=== PATIENT | female | born 1960 | race American Indian/Alaskan Native ===

== ENCOUNTER 2023-07-03 10:23 | Emergency (ER) | payer MEDICAID ==
[~2023-07-03] VITALS: Ht 165.1 cm; Wt 60.0 kg
[2023-07-03 10:29] VITALS: O2SAT 99
[2023-07-03] MEDS: ACETAMINOPHEN 500MG TABLET PO ONE (11:00)
[2023-07-03] MEDS ORDERED: NAPR-1176 MT (11:53)
[2023-07-03 12:34] VITALS: BP 138/75; PULSE 89; RESP 16; TEMP 98.4
== END 2023-07-03 12:34 | disposition home or self-care (01) ==
LOC: ER 10:23
DX: M70.51 Other bursitis of knee, right knee (principal); I10 Essential (primary) hypertension; E11.9 Type 2 diabetes mellitus without complications; J45.909 Unspecified asthma, uncomplicated; Z88.1 Allergy status to other antibiotic agents; Z98.890 Other specified postprocedural states; Y93.89 Activity, other specified
CPT/HCPCS: 73562; 99283

== ENCOUNTER 2023-09-28 13:48 | Emergency (ER) | payer MEDICAID ==
[~2023-09-28] VITALS: Ht 160 cm; Wt 68.0 kg
[~2023-09-28 13:48] MED LIST: NAPR-1176 MT
[2023-09-28 14:10] VITALS: O2SAT 100
[2023-09-28] MEDS: KETOROLAC 30MG/ML VIAL IM ONE (15:18)
[2023-09-28 15:30] VITALS: BP 133/78; PULSE 88; RESP 17; TEMP 98
== END 2023-09-28 16:56 | disposition home or self-care (01) ==
LOC: ER 14:04
DX: M25.562 Pain in left knee (principal); J45.909 Unspecified asthma, uncomplicated; E11.9 Type 2 diabetes mellitus without complications; I10 Essential (primary) hypertension
CPT/HCPCS: 73562; 96372; 99283; J1885; Z7610